=== PATIENT | male | born 1980 | race Caucasian/White ===

== ENCOUNTER 2025-01-08 02:54 | Emergency (ER) | payer OTHER, SELFPAY ==
[2025-01-08 03:03] VITALS: BP 132/75; PULSE 74; TEMP 36.9; O2SAT 97; BMI 39.1
--- NOTE | 2025-01-08 03:07 | ED_ITS ---
HPI HPI - Extremity Injury (Upper) General Chief Complaint: Extremity Injury, Upper Stated Complaint: CUT HIS HAND RIGHT HAND Time Seen by Provider: 01/08/25 03:03 History of Present Illness HPI narrative: This 44-year-old male who is right-hand dominant presents for evaluation of an industrial accident in which his right hand got caught in a machine at work and he uses left hand to pull the right hand out. He sustained a approximately 3 cm laceration to the right index finger over the PIP joint. He also has a skin tear to the left fifth MCP joint on the palmar aspect and states that the 2nd, 3rd and 4th fingers are swollen and painful. No additional injuries or complaints noted. He does not know the date of his last tetanus shot. Related Data Allergies Allergy/AdvReac Type Severity Reaction Status Date / Time No Known Drug Allergies Allergy Verified 01/08/25 03:08 Opioid HPI Opioid Management Most Recent Pain and Opioid Data: Last Pain Scale 10 Today, 04:49 Last ED Pain Assessment Today, 03:36 Last MAR Pain Assessment Today, 04:49 Review of Systems ROS Status of ROS 10 or more systems reviewed and unremark able except as noted in history and below PFSH PFSH Social History Little interest or pleasure in doing things: not at all Feeling down, depressed, or hopeless: not at all Exam Narrative Exam Narrative: Vital signs and Nursing Notes reviewed: Patient is afebrile with a normal pulse, blood pressure is minimally elevated 132/75, he is not hypoxic with pulse ox of 97% on room air General: Awake, alert, oriented, no acute distress, lying comfortably on the stretcher HEENT: Normocephalic atraumatic, mucous membranes are moist and pink, eyes are clear, normal conjunctiva, vision is grossly intact Chest: Lungs are clear to auscultation with good air entry, there is no wheezing rhonchi or rales appreciated no accessory muscle use, patient is speaking in complete sentences-no chest wall tenderness to palpation CVS: Regular rate and rhythm S1-S2, no murmurs rubs or gallops Extremities: Moving all extremities, no lower extremity injury noted, there is a superficial skin tear to the palmar aspect of the left hand at the fifth metacarpal. There is tenderness with some mild swelling to the index long and ring finger. Full range of motion is appreciated. No bony deformity or bleeding noted. There is an approximately 3 cm diagonal, flap type laceration over the right index finger PIP joint. A partial flexor tendon laceration is noted underneath the flap. Mild active bleeding is noted. Patient is able to flex against resistance and extend his finger completely. Sensation is intact. Capillary refill at the end of the finger is normal. There is no nailbed injury. Skin: Normal in appearance without rash,pallor, petechiae or purpura Neuro: No focal deficits Constitutional Vital Signs, click to edit/add: Last Vital Signs Temp 98.5 F 01/08/25 03:03 Pulse 74 01/08/25 03:03 Resp 18 01/08/25 03:03 BP 132/75 01/08/25 03:03 Pulse Ox 97 01/08/25 03:03 O2 Del Method Room Air 01/08/25 03:03 Course Vital Signs Vital signs: Vital Signs Temperature 98.5 F 01/08/25 03:03 Pulse Rate 74 01/08/25 03:03 Respiratory Rate 18 01/08/25 03:03 Blood Pressure 132/75 01/08/25 03:03 Pulse Oximetry 97 01/08/25 03:03 Oxygen Delivery Method Room Air 01/08/25 03:03 Temperature 98.5 F 01/08/25 03:03 Pulse Rate 74 01/08/25 03:03 Respiratory Rate 18 01/08/25 03:03 Blood Pressure 132/75 01/08/25 03:03 Pulse Oximetry 97 01/08/25 03:03 Oxygen Delivery Method Room Air 01/08/25 03:03 MDM - Extremity Injury (Upper) MDM Narrative Medical decision making narrative: This 44-year-old male is brought to the emergency department from his job site after he injured his right hand and left hand. The patient states he was putting product into a machine when the product got caught and pulled his hand into the machine. He sustained approximately 3 cm diagonal flap type laceration to the right index finger overlying the PIP joint with a flexor tendon injury underneath the laceration. He did have flexion and extension of the finger. He was neurovascularly intact. He also had pain and some swelling at the proximal phalanges of the index long and ring finger of the left hand without any notable injury besides a skin tear at the base of the palmar aspect of the left fifth finger. There was a moderate mount of bleeding. X-ray of the right hand does not show any fracture, dislocation or foreign body. X-ray of the left hand was also ordered and does not show any acute fracture or dislocation or foreign body. This was copiously cleaned and the tendon laceration was proximated with two 4-0 Vicryl sutures and the large laceration of the skin was closed with 13, 3-0 Ethilon sutures. Tetanus was updated. Bacitracin dressing and finger splint was applied. Wound care instructions were given to the patient who verbalized understanding. He was medicated with a dose of Keflex prior to discharge and given a prescription for Keflex to use for the next week as well as 2 [place] to use when the anesthesia from the lidocaine wears off as well as a prescription for [place] for the next 3 days and ibuprofen. He was referred to outpatient Workmen's Comp. and given the referral information as we do not have Workmen's Comp. at this facility at this time. I did explain to him that he may ultimately need to see a hand surgeon due to the flexor tendon injury he sustained during this accident. Discharge Plan Discharge Chief Complaint: Extremity Injury, Upper Clinical Impression: Laceration of index finger with tendon involvement Patient Disposition: Home, Self-Care Time of Disposition Decision: 04:16 Condition: Good Print Language: French Instructions: Laceration (ED), Finger Laceration (ED) Additional Instructions: Apply bacitracin topically twice daily and keep your finger covered with a sterile nonstick dressing until the stitches can be removed in 12 to 14 days. Use the finger splint until the laceration appears to be healing to keep your finger from flexing and splitting the sutures open. Use antibiotics as directed until gone. Use pain medications as needed. Return to the emergency department for severe pain, redness or swelling out of proportion to the injury or red streaks up your arm, for any fever or any concerns. Follow-up with one of the Workmen's Comp. sites on the paperwork that was given to you at the time of discharge. Referrals: Physician,Non-Staff, [Primary Care Provider] - 1 week Procedures ED Procedure Instructions Procedures Procedures: Procedure note: Laceration repair of right index finger. The procedure was explained to the patient who verbalized understanding and gave verbal consent. X-ray of the right index finger was reviewed by myself and does not show any fracture dislocation or foreign body. The right hand was soaked in warm Hibiclens water. A digital block and local lidocaine infiltration along the wound edges was performed. When anesthesia was obtained the skin flap was lifted up revealing a partial flexor tendon laceration. Copious normal saline irrigation was used to irrigate the wound. 2, 4-0 Vicryl sutures were placed into the tendon laceration. 13, 3-0 Ethilon sutures were used to close the laceration with good wound edge approximation. The hand was returned to warm Hibiclens solution to gently remove any remaining blood. A bacitracin nonstick dressing was placed by the nursing staff and the patient was placed in a finger splint for immobilization.
--- NOTE | 2025-01-08 03:07 | XR_ITS ---
[facility] [id number] Patient Name: KAEL SHOEMAKER MRN: [id number] date: 1980 Sex: M Assigned Patient Location: ED.MAIN Current Patient Location: ER Accession/Order Number: [id number] Exam Date: 01/08/2025 03:24 Report Date: 01/08/2025 08:42 At the request of: PEPITO BARTON MD Procedure: XR hand ALICE min 3v XR hand ALICE min 3v 01/08/2025 3:34 AM SIGNS AND SYMPTOMS: Laceration of the right second digits swelling PROTOCOL: Frontal, lateral, and oblique radiographs of the right hand COMPARISON: None FINDINGS: There is mild narrowing of the interphalangeal joints. There is no evidence of acute displaced fracture. No radiopaque foreign body. No significant soft tissue swelling. XR/XR hand ALICE min 3v IMPRESSION: No fracture. No abnormal radiopaque foreign body. Impression dictated by: Marquise Mariee M.D. 01/08/2025 8:42 AM Dictation Location: [place] [address] Electronically authenticated by: [id number] Y Date: 01/08/2025 08:42
[2025-01-08] MEDS: LIDOCAINE HCL 1% 100 MG/10 ML MDV INJ (04:07)
[2025-01-08] MEDS: DIPHTH,PERTUSS(ACELL),TET VAC 0.5 ML SYRINGE IM (04:07)
[2025-01-08] MEDS: BACITRACIN OINTMENT 28.4 GM TUBE TOPICAL (04:48)
[2025-01-08] MEDS: HYDROCODONE/ACET 5-325 MG TABLET 2 TAB PO (04:49)
[2025-01-08] MEDS: CEPHALEXIN 500 MG CAPSULE PO (04:49)
--- NOTE | 2025-01-08 04:59 | PC.NURSE ---
Adaptic, tube gauze, igit splint and carlotta applied. 13 stitches noted, area well approximated
[2025-01-08 05:00] VITALS: BP 124/80; PULSE 63; O2SAT 98
== END 2025-01-08 05:05 | disposition home or self-care (01) ==
PROVIDERS: Emergency Provider Emergency Medicine
DX: S66.120A Laceration of flexor muscle, fascia and tendon of right index finger at wrist and hand level, initial encounter (principal); W31.9XXA Contact with unspecified machinery, initial encounter; S61.412A Laceration without foreign body of left hand, initial encounter; Z23 Encounter for immunization
CPT/HCPCS: 13132; 73130; 90471; 90715; 99283